=== PATIENT | female | born 1960 | race Two or more races ===

== ENCOUNTER → 2018-02-10 | Outpatient (CLI) | payer OTHER ==
--- NOTE | 2018-02-11 08:32 | Diagnostic Imaging Report ---
MRI of the left shoulder without contrast. History: Shoulder pain. Strain. Fall. Decreased range of motion. Comparison: None Technique: Coronal PD FS, sagital PD FS, and axial PD and PD FS. Findings: Rotator cuff: There is rotator cuff tendinosis with midsubstance degeneration and articular sided fraying involving the anterior fibers of the supraspinatus and infraspinatus tendons at the humeral insertion site. No rotator cuff tear or retraction. There is mild rotator cuff muscle atrophy best seen on series 6 image 16. Osseous acromion complex: There is a type II acromion with mild lateral downsloping. There is mild degenerative arthrosis at the acromioclavicular joint with undersurface spurring and mild narrowing of the supraspinatus tendon outlet. Glenohumeral joint: There is degeneration and fraying of the labrum. There is increased signal intensity in the anterior inferior axillary pouch likely due to a capsular sprain. The humeral head is well-seated in the glenoid fossa. The articular cartilage surfaces are intact. There is an effusion/synovitis in the rotator interval and subcoracoid space. Biceps tendon: The biceps tendon is intact. Other findings: There is a nondisplaced obliquely oriented fracture through the humeral head with associated bone marrow edema. The fracture extends superiorly and obliquely to the inferior aspect of the glenohumeral joint. Impression: Nondisplaced obliquely oriented fracture through the humeral head with associated bone marrow edema. Findings likely due to a capsular sprain with effusion/synovitis in the rotator interval and subcoracoid space. Rotator cuff tendinosis with midsubstance degeneration and articular sided fraying involving the anterior fibers of the supraspinatus and infraspinatus tendons at the humeral insertion site. No rotator cuff tear or retraction Signed by: Dr. Daron Avila M.D. on 02/11/2018 8:28 AM
== END ==
LOC: MRI 14:36
PROVIDERS: ATTEND Family Medicine
DX: S46.912D Strain of unspecified muscle, fascia and tendon at shoulder and upper arm level, left arm, subsequent encounter (principal)